=== PATIENT | female | born 1950 | race Caucasian/White ===

== ENCOUNTER → 2017-07-28 | Outpatient (CLI) | payer MEDICARE ==
[~2017-07-28] MED LIST: ACE3 PO; IBU800 PO; LEVO25TA56 PO; LEVO75TA73 PO; VAR1 PO
--- NOTE | 2017-07-28 10:49 | RADIOLOGY IMAGING REPORT ---
FACILITY: [facility] PATIENT NAME: Poonam Swanson : 1950 MR: [id number] V: [id number] EXAM DATE: ORDERING PHYSICIAN: MORAIMA MUSTAFA TECHNOLOGIST: Location: [facility] [place] Patient: Poonam Swanson : 1950 Visit/Account:[id number] Date of Sevice: 07/28/2017 Exam type: CHEST PA AND LAT History: Cough, chest tightness, smoker Comparison: February 26, 2011. Findings: Again noted is haziness in the right cardiophrenic angle that appears stable. This likely represents prominent epicardial fat pad or pericardial cyst. There Is a small linear band of platelike atelec tasis versus scarring in the left lung base. No evidence of acute appearing infiltrates pleural effu sions or pulmonary edema. Cardiac silhouette is normal in size. IMPRESSION: 1. Small band of platelike atelectasis versus scarring in the left midlung field Haziness in the right cardiophrenic angle is stable when compared the prior study likely related to a prominent epicardial fat pad or pericardial cyst Report Dictated By: Joanna Chavez MD at 07/28/2017 10:42 AM Report E-Signed By: Joanna Chavez MD at 07/28/2017 10:43 AM WSN:[email or web address]
== END ==
LOC: RAD 10:04
PROVIDERS: ATTEND Family Medicine
DX: R91.8 Other nonspecific abnormal finding of lung field (principal)
CPT/HCPCS: 71046

== ENCOUNTER → 2017-07-29 | Outpatient (CLI) | payer MEDICARE ==
--- NOTE | 2017-07-29 11:48 | RADIOLOGY IMAGING REPORT ---
FACILITY: [facility] - [place] PATIENT NAME: Poonam Swanson : 1950 MR: [id number] V: [id number] EXAM DATE: ORDERING PHYSICIAN: MORAIMA MUSTAFA TECHNOLOGIST: Location: [facility] [place] Patient: Poonam Swanson : 1950 Visit/Account:[id number] Date of Sevice: 07/29/2017 CHEST W/O CONTRAST History: Screening for lung cancer, has two sisters recently diagnosed with lung cancer TECHNIQUE: Contiguous axial images were performed through the chest to the level of the adrenal gla nds. No IV contrast was administered. Coronal and sagittal reformatting was also performed. Dose Lowe ring Technique One of the following dose optimization techniques was utilized in the performance of this exam: Autom ated exposure control; adjustment of the mA and/or kV according to the patient's size; or use of an i terative reconstruction technique. Specific details can be referenced in the facility's radiology C T exam operational policy. COMPARISON STUDIES: none. Lungs / Pleura: There Is a 3 mm noncalcified nodule anterior aspect the right middle lobe abutting t he minor fissure. There is a 6 mm pulmonary nodule anterolateral aspect left upper lobe best seen on image 36. There is a 5 mm peripheral groundglass nodule abutting the lateral pleural margin lateral aspect righ t lower lobe best seen on image 74 There is mild linear stranding in the lower lobes right middle lobe and pulmonary apices which may re present scarring. Mediastinum/nodes: Mediastinal structures not ideally evaluated due to lack of intravenous contrast. No gross evidence of pathologic-appearing hilar or mediastinal adenopathy Heart and vessels: Trace pericardial fluid. There are mild coronary artery vascular calcifications. Left pulmonary artery appears slightly prominent Musculoskeletal / Body wall: negative. Upper abdomen: There Is a small hiatal hernia. Mild diverticulosis noted at the splenic flexure IMPRESSION: There are at least three pulmonary nodules identified. The largest measuring 6 mm in diameter. Curr ent Fleischner Society recommendations are as follows For multiple nodules measuring less than 6 mm, in a low risk patient (minimal or absent smoking history, no history of malignancy), no routine follo wup is recommended. In a high risk patient (smoking or malignancy history), optional 12 month followu p can be obtained. Trace pericardial fluid Mild coronary artery vascular calcifications Left pulmonary artery appears slightly prominent. This is not well evaluated without contrast. Small hiatal hernia Mild diverticulosis of the colon Report Dictated By: Joanna Chavez MD at 07/29/2017 11:28 AM Report E-Signed By: Joanna Chavez MD at 07/29/2017 11:45 AM WSN:[email or web address]
== END ==
LOC: CT 07:10
PROVIDERS: ATTEND Family Medicine
DX: Z12.2 Encounter for screening for malignant neoplasm of respiratory organs (principal); R91.8 Other nonspecific abnormal finding of lung field; I25.10 Atherosclerotic heart disease of native coronary artery without angina pectoris; K44.9 Diaphragmatic hernia without obstruction or gangrene; K57.30 Diverticulosis of large intestine without perforation or abscess without bleeding
CPT/HCPCS: 71250

== ENCOUNTER 2017-12-31 00:56 | Day surgery (SDC) | payer MEDICARE ==
[~2017-12-31] VITALS: Ht 162.6 cm; Wt 83.9 kg
[2017-12-31] MEDS ORDERED: NORMOSOL R SOLN(*) 1000 ML BAG 1,000 ML IV PRN (06:30)
[2017-12-31] MEDS ORDERED: LIDOCAINE/SOD BICARB 8.4% SYR ID ONE (06:30)
[2017-12-31 06:36] VITALS: BP 158/85
[2017-12-31] MEDS ORDERED: PROPOFOL EMUL(*) 10MG/ML 20 ML 40 ML ONE (07:32)
[2017-12-31] MEDS ORDERED: LIDOCAINE MPF 1% 5 ML VIAL ONE (07:32)
[2017-12-31 08:02] VITALS: BP 116/59
[2017-12-31 08:34] VITALS: BP 126/91
[2017-12-31 08:35] VITALS: BP 136/84
== END 2017-12-31 08:47 | disposition home or self-care (01) ==
LOC: OR 00:56
PROVIDERS: ATTEND Family Medicine
DX: Z12.11 Encounter for screening for malignant neoplasm of colon (principal); K57.30 Diverticulosis of large intestine without perforation or abscess without bleeding; E03.9 Hypothyroidism, unspecified; R05 Cough; Z87.891 Personal history of nicotine dependence; Z80.1 Family history of malignant neoplasm of trachea, bronchus and lung
CPT/HCPCS: 00812; G0121; J2001; J2704

== ENCOUNTER → 2018-01-28 | Outpatient (CLI) | payer MEDICARE ==
--- NOTE | 2018-01-28 10:25 | RADIOLOGY IMAGING REPORT ---
FACILITY: [facility] - [place] PATIENT NAME: Poonam Swanson : 1950 MR: [id number] V: [id number] EXAM DATE: ORDERING PHYSICIAN: LYNDSEY DENT TECHNOLOGIST: Location: [facility] Patient: Poonam Swanson : 1950 Visit/Account:[id number] Date of Sevice: 01/28/2018 EXAMINATION: CT Chest Without Contrast 01/28/2018 9:30 AM HISTORY: Lung cancer screening. The patient has a previous screening study with demonstration of pul monary nodules. TECHNIQUE: Spiral scan was obtained through the chest without contrast. One of the following dose optimization techniques was utilized in the performance of this exam: Autom ated exposure control; adjustment of the mA and/or kV according to the patient's size; or use of an i terative reconstruction technique. Specific details can be referenced in the facility's radiology C T exam operational policy. COMPARISON STUDIES: 07/29/2017. FINDINGS: Lungs / pleura: 6 x 5 mm circumscribed solid nodule in the lateral left upper lobe (series 4 image 12 1) is stable. 3 mm medial left lower lobe nodule (image 202) was less discrete previously. 3 mm sta ble micronodule in the anteroinferior right upper lobe (image 184). Triangular pleural-based or radha fissural micronodule anterolaterally in the right lower lobe is also stable (image 235). Small granu elías in the posterior medial right base (image 278). There are minimal emphysematous lucencies. Sma ll amount of scarring is the mediastinum in the right middle lobe and the lingula as well as the basi lar aspects of both lower lobes. Mediastinum / margo: negative Heart / pericardium: Small pericardial effusion. Vessels: Atherosclerosis includes coronary disease. Musculoskeletal / Body wall: Degenerative spurring in the spine. Stable subtle wedging of T7. Lymph node assessment: negative Lower neck: Ovoid mildly hyperdense 1.8 cm right lobe thyroid nodule is stable. Upper abdomen: Upper pole low density on the left kidney is likely an incidental cyst. Diverticulosi s in visualized portion of the colon. Tiny hypodensity in the right side of segment 2 in the left lo be presumably is an incidental cyst or hemangioma. IMPRESSION: 1. Pulmonary micronodules are for the most part stable with a single 3 mm left lower lobe focus whic h is more discrete than previous (PI-RADS 2). 12 month follow-up is recommended. 2. Mildly hyperdense solid-appearing right lobe thyroid nodule. Thyroid ultrasound would define thi s more thoroughly. Report Dictated By: Antwan Campos MD at 01/28/2018 9:56 AM Report E-Signed By: Antwan Campos MD at 01/28/2018 10:22 AM WSN:[email or web address]
--- NOTE | 2018-01-28 13:47 | RADIOLOGY IMAGING REPORT ---
[place] [facility] [place] MAEVE GREER : [id number] MR: [id number] V: [id number] EXAM DATE: [id number] ORDERING PHYSICIAN: LYNDSEY DENT TECHNOLOGIST: Dianna Das PROCEDURE:BILATERAL DIGITAL SCREENING MAMMOGRAM WITH CAD ASSISTED INTERPRETATION & 3D TOMOSYNTHESIS COMPARISON:Prior mammograms 01/08/17 & 03/28/11. INDICATIONS:SCREENING FINDINGS: The breasts have scattered fibroglandular parenchymal densities. There are stable lymph nodes in the posterior upper outer aspect of the Left breast. Benign appearing calcifications bilaterally. No mammographic findings concerning for malignancy. No significant from priors. DIAGNOSTIC CATEGORY 2--BENIGN FINDING. RECOMMENDATIONS: ROUTINE MAMMOGRAM AND CLINICAL EVALUATION IN 1 YEAR. IMPRESSION: BIRADS 2: Benign finding. Dictated by: Antwan Campos on 01/28/2018 at 9:34 Transcribed by: KYLIE on 01/28/2018 at 11:07 Approved by: Antwan Campos on 01/28/2018 at 13:46 [facility]
== END ==
LOC: MAMO 02:01
PROVIDERS: ATTEND Physician Assistant
DX: Z12.2 Encounter for screening for malignant neoplasm of respiratory organs (principal); Z12.31 Encounter for screening mammogram for malignant neoplasm of breast; R91.8 Other nonspecific abnormal finding of lung field; E04.1 Nontoxic single thyroid nodule; R92.1 Mammographic calcification found on diagnostic imaging of breast
CPT/HCPCS: 71250; 77063; 77067

== ENCOUNTER → 2018-02-03 | Outpatient (CLI) | payer MEDICARE ==
--- NOTE | 2018-02-03 12:04 | RADIOLOGY IMAGING REPORT ---
FAC[place] [facility] [place]IENT NAME: Poonam Swanson : 1950 MR: [id number] V: [id number] EXAM DATE: ORDERING PHYSICIAN: LYNDSEY DENT TECHNOLOGIST: Location: [facility] Patient: Poonam Swanson : 1950 Visit/Account:[id number] Date of Sevice: 02/03/2018 EXAMINATION: Thyroid ultrasound 02/03/2018 11:00 AM History: Right lobe thyroid nodule by CT COMPARISON STUDIES: CT chest 01/28/2018 FINDINGS: Thyroid size: Right lobe 4.1 x 1.9 x 2.3 cm Left lobe 3.5 x 1.2 x 1.0 cm Isthmus 2 mm Thyroid nodules: Right lobe - round smoothly marginated hypoechoic nodule in the superior pole measures 5 x 4 x 5 mm. Similar rounded hypoechoic nodule immediately below this measures 1.2 x 0.8 x 0.8 cm. Largest solid nodule below this is fairly smoothly marginated with mildly heterogeneous iso to hyperechoic t exture measuring 1.8 x 1.5 x 1.6 cm. Below this there is a fairly similar appearing isoechoic to sli ghtly hyperechoic mildly heterogeneous solid appearing nodule measuring 1.6 x 1.5 x 1.8 cm. Left lobe - smoothly marginated rounded nearly isoechoic nodule in the midportion measures 0.8 x 0.5 x 0.7 cm. Additional slightly hypoechoic ovoid solid nodule above and behind this measures 0.9 x 0.6 x 0.5 cm. Isthmus - none Thyroid vascularity: normal IMPRESSION: Multinodular thyroid. FNA assessment of one of the 2 low suspicion but 1.8 cm solid nodules on the r ight would be recommended. If this is benign, sonographic surveillance of the other foci should be r easonable. REFERENCE: 2015 [employer] Management Guidelines for Adult Patients with Thyroid Nodules and D ifferentiated Thyroid Cancer: The [employer] [place] [employer] Guidelines Task Force on Thyroid Nodul es and Differentiated Thyroid Cancer. SONOGRAPHIC PATTERNS: * Benign: Purely cystic nodules (no solid component); estimated risk of malignancy <1 percent; no bi opsy recommended. * Very Low Suspicion: Spongiform or partially cystic nodules without any of the sonographic features described in low, intermediate, or high suspicion patterns; estimated risk of malignancy <3 percent; consider FNA at > 2 cm (Observation without FNA is also a reasonable option). * Low Suspicion: Isoechoic or hyperechoic solid nodule, or partially cystic nodule with eccentric so lid areas, without microcalcification, irregular margin or ETE (extra-thyroidal extension), or taller than wide shape; estimated risk of malignancy 5-10 percent; recommend FNA at >1.5 cm. * Intermediate Suspicion: Hypoechoic solid nodule with smooth margins without microcalcifications, E TE (extra-thyroidal extension), or taller than wide shape; estimated risk of malignancy 10-20 percent ; recommend FNA at > 1 cm. * High Suspicion: Solid hypoechoic nodule or solid hypoechoic component of a partially cystic nodule with one or more of the following features: irregular margins (infiltrative, microlobulated), microc alcifications, taller than wide shape, rim calcifications with small extrusive soft tissue component, evidence of ETE (extra-thyroidal extension); estimated risk of malignancy >70-90 percent; recommend FNA at > 1 cm. NOTES: * Although a sonographically suspicious subcentimeter thyroid nodule without evidence of extrathyroi robb extension or sonographically suspicious lymph nodes may be observed with close sonographic follow -up rather than pursuing immediate FNA, patient age and preference may modify decision-making. A > 50% interval increase in nodule volume and/or development of new suspicious sonographic features are felt to be a valid reasons for potential re-aspiration of a nodule previously shown to have benig n FNA cytology. Report Dictated By: Antwan Campos MD at 02/03/2018 11:55 AM Report E-Signed By: Antwan Campos MD at 02/03/2018 12:00 PM WSN:[email or web address]
== END ==
LOC: US 02:40
PROVIDERS: ATTEND Physician Assistant
DX: E04.2 Nontoxic multinodular goiter (principal)
CPT/HCPCS: 76536

== ENCOUNTER 2018-02-04 09:17 | Outpatient (RCR) | payer MEDICARE ==
[2018-02-04 09:48] LABS: INR 0.95
--- NOTE | 2018-02-12 14:35 | RADIOLOGY IMAGING REPORT ---
FACILITY: [facility] PATIENT NAME: Poonam Swanson : 1950 MR: [id number] V: [id number] EXAM DATE: ORDERING PHYSICIAN: LYNDSEY DENT TECHNOLOGIST: Location: [facility] Patient: Poonam Swanson : 1950 Visit/Account:[id number] Date of Sevice: 02/12/2018 Ultrasound-guided fine-needle aspiration of the thyroid Indication: Thyroid nodules Comparison: Thyroid ultrasound dated 02/03/2018. Findings: After informed consent was obtained, the patient was prepped and draped in standard sterile fashion. A timeout was performed. Local anesthesia was obtained with 1% lidocaine. 4 ultrasound-guided fine-needle aspiration passes through the 1.8 cm nodule in the mid right thyroid lobe. There are no immediate complications and the patient tolerated the procedure well. Impression: Successful ultrasound-guided fine-needle aspiration of the 1.8 cm nodule in the mid right thyroid lobe. Report Dictated By: Venancio Newman MD at 02/12/2018 2:31 PM Report E-Signed By: Venancio Newman MD at 02/12/2018 2:33 PM WSN:[email or web address]
== END 2018-02-12 18:00 | disposition home or self-care (01) ==
LOC: RAD 09:17
PROVIDERS: ATTEND Physician Assistant
DX: E04.1 Nontoxic single thyroid nodule (principal)
CPT/HCPCS: 10022; 36415; 76942; 85610